=== PATIENT | female | born 1950 | race Caucasian/White ===

== ENCOUNTER 2018-03-16 13:44 | Outpatient (CLI) | payer MEDICARE, OTHER ==
[2018-03-16 14:35] LABS: BASOPHILS % (AUTO) 0.6 %; EOSINOPHILS # (AUTO) 0.1 10^3/uL (0.0-0.7); EOSINOPHILS % (AUTO) 1.1 %; HGB - HEMOGLOBIN 14.3 g/dL (12.0-16.0); LYMPHOCYTES # (AUTO) 1.2 10^3/uL (1.5-3.5); MEAN CORPUSCULAR HEMOGLOBIN 32.1 pg (27.0-31.0); MEAN CORPUSCULAR HGB CONC 34.4 g/dL (32.0-36.0); MEAN CORPUSCULAR VOLUME 93.3 fL (81.0-99.0); MEAN PLATELET VOLUME 7.5 fL (7.9-10.8); MONOCYTES # (AUTO) 0.3 10^3/uL (0.0-1.0); MONOCYTES % (AUTO) 5.7 %; NEUTROPHILS # (AUTO) 3.5 10^3/uL (1.5-6.6); NEUTROPHILS % (AUTO) 68.6 %; PLT - PLATELET COUNT 270 10^3/uL (130-450); RED BLOOD COUNT 4.46 10^6/uL (4.20-5.40); RED CELL DISTRIBUTION WIDTH 12.7 % (12.0-15.0); WHITE BLOOD COUNT 5.1 x10^3/uL (4.8-10.8)
[2018-03-16 15:19] LABS: T4 (THYROXINE) 10.03 ug/dL (6.09-12.23)
[2018-03-16 15:22] LABS: FREE T3 2.79 pg/mL (2.5-3.9)
[2018-03-16 15:23] LABS: THYROID STIMULATING HORMONE 1.94 uIU/mL (0.34-5.60)
[2018-03-16 15:25] LABS: FREE T4 (FREE THYROXINE) 0.97 ng/dL (0.58-1.64)
[2018-03-16 15:46] LABS: % IRON SATURATION 30 % (20-50); ALBUMIN 4.2 g/dL (3.2-5.5); ALBUMIN/GLOBULIN RATIO 1.4 (1.0-2.2); ALKALINE PHOSPHATASE 71 IU/L (42-121); ALT ALANINE AMINOTRANSFERASE 16 IU/L (10-60); AST ASPARTATE AMINOTRANSFERASE 18 IU/L (10-42); BILIRUBIN,TOTAL 0.6 mg/dL (0.2-1.0); BUN - BLOOD UREA NITROGEN 11 mg/dL (6-20); CALCIUM 9.1 mg/dL (8.5-10.3); CARBON DIOXIDE - CO2 26 mmol/L (21-32); CHLORIDE 101 mmol/L (101-111); CHOL/HDL RATIO 2.5 (<4.4); CHOLESTEROL 217 mg/dL; CREATININE 0.6 mg/dL (0.4-1.0); GFR - MDRD 99 (>89); GLUCOSE 95 mg/dL (70-100); HDL CHOLESTEROL 86 mg/dL; IRON 89 ug/dL (28-170); LDL CHOLESTEROL,CALCULATED 113 mg/dL; LDL/HDL RATIO 1.3 (<4.4); SODIUM 136 mmol/L (135-145); TOTAL IRON BINDING CAPACITY 300 ug/dL (250-450); TOTAL PROTEIN 7.1 g/dL (6.7-8.2); TRANSFERRIN 214 mg/dL (192-382); VLDL CHOLESTEROL 18 mg/dL
[2018-03-16 15:51] LABS: FOLLICLE STIMULATING HORMONE 78.67 mIU/mL
[2018-03-16 15:52] LABS: LUTEINIZING HORMONE 26.22 mIU/mL
[2018-03-17 10:12] LABS: PROGESTERONE 0.6 ng/mL
== END 2018-03-16 13:45 | disposition home or self-care (01) ==
LOC: LAB 13:44
PROVIDERS: ATTEND Nurse Practitioner Family
DX: Z00.01 Encounter for general adult medical examination with abnormal findings (principal); R53.83 Other fatigue; E78.5 Hyperlipidemia, unspecified; D50.8 Other iron deficiency anemias; E55.9 Vitamin D deficiency, unspecified; M81.0 Age-related osteoporosis without current pathological fracture; N95.1 Menopausal and female climacteric states; R68.82 Decreased libido
CPT/HCPCS: 36415; 80053; 80061; 82306; 82627; 82670; 83001; 83002; 83540; 83721; 84144; 84403; 84436; 84439; 84443; 84466; 84481; 85025; 86376